=== PATIENT | male | born 1985 | race Caucasian/White ===

== ENCOUNTER → 2020-05-30 | Emergency (ER) | payer SELFPAY ==
[~2020-05-30] VITALS: Ht 175.3 cm; Wt 68.0 kg
[~2020-05-30] MED LIST: ALBUTEROL FS 2.5 MG/3 ML VIAL.NEB ONE; IPRATROPIUM NEB FS 0.5 MG/2.5 ML AMPUL.NEB ONE
[2020-05-30 22:27] VITALS: BP 132/64
== END | disposition home or self-care (01) ==
LOC: ER 22:27
DX: F15.90 Other stimulant use, unspecified, uncomplicated (principal); G35 Multiple sclerosis